=== PATIENT | male | born 1935 | race Caucasian/White ===

== ENCOUNTER 2017-04-15 10:06 | Emergency (ER) | payer MEDICARE, MEDICAID ==
[2017-04-15 10:12] VITALS: TEMP 97
[2017-04-15] MEDS ORDERED: Sodium Chloride 0.9% 1,000 ML IV STA (10:28)
--- NOTE | 2017-04-15 10:34 | ED PDOC ---
HPI: General Adult Time Seen by Provider: 04/15/17 10:14 Chief Complaint (Provider): Weakness History Per: Patient History/Exam Limitations: no limitations Onset/Duration Of Symptoms: Days (Yesterday) Additional Complaint(s): Weakness all over with pain to the neck. No numbness, tingles, back pain, chest pain. Had dyspnea yesterday, not today. No headaches, vision changes, abd pain, nausea, vomit, diarrhea. No cough, congestion, runny nose. No dysuria. No leg pain. No headache. Has dizzinesss like light-headed. Past Medical History Reviewed: Nursing Documentation, Vital Signs Vital Signs: Last Vital Signs Temp 97.0 F L 04/15/17 10:11 Pulse 75 04/15/17 11:30 Resp 18 04/15/17 11:30 BP 142/64 04/15/17 11:30 Pulse Ox 96 04/15/17 13:34 - Medical History PMH: HTN, Hypercholesterolemia, Seizures Denies: Chronic Kidney Disease Other PMH: TIA; prostate ca hx - Family History Family History: States: Unknown Family Hx - Living Arrangements Living Arrangements: With Family - Social History Current smoker - smoking cessation education provided: No Alcohol: None Drugs: Denies - Immunization History Hx Tetanus Toxoid Vaccination: No Hx Influenza Vaccination: No Hx Pneumococcal Vaccination: No - Home Medications Home Medications: Ambulatory Orders Medication Instructions Recorded Atorvastatin 03/28/14 Carvedilol 03/28/14 Hydralazine HCl 03/28/14 Montelukast 03/28/14 Symbicort 03/28/14 Travatan Z 2.5 ml 03/28/14 Vascepa 03/28/14 Clindamycin [Cleocin] 150 mg PO Q6 #0 cap 03/30/14 - Allergies Allergies/Adverse Reactions: Allergies Allergy/AdvReac Type Severity Reaction Status Date / Time No Known Allergies Allergy Verified 04/15/17 10:33 Review of Systems ROS Statement: Except As Marked, All Systems Reviewed And Found Negative Constitutional: Positive for: Weakness Cardiovascular: Positive for: Light Headedness Musculoskeletal: Positive for: Neck Pain Neurological: Positive for: Weakness, Dizziness Physical Exam - Reviewed Nursing Documentation Reviewed: Yes Vital Signs Reviewed: Yes - Physical Exam Appears: Positive for: Non-toxic, No Acute Distress Head Exam: Positive for: ATRAUMATIC, NORMAL INSPECTION, NORMOCEPHALIC Skin: Positive for: Normal Color, Warm, DRY Eye Exam: Positive for: EOMI, Normal appearance, PERRL ENT: Positive for: Normal ENT Inspection Neck: Positive for: Normal, Painless ROM, Supple Cardiovascular/Chest: Positive for: Regular Rate, Rhythm Respiratory: Positive for: CNT, Normal Breath Sounds Gastrointestinal/Abdominal: Positive for: Normal Exam, Bowel Sounds, Soft. Negative for: Tenderness Back: Positive for: Normal Inspection. Negative for: L CVA Tenderness, R CVA Tenderness Extremity: Positive for: Normal ROM. 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 Negative for: Motor/Sensory Deficits, Aphasia, Facial Droop - Laboratory Results Result Diagrams: 04/15/17 10:57 04/15/17 10:57 Interpretation Of Abnormal: 27/1.5 bun/cr - ECG ECG: Positive for: Interpreted By Me, Viewed By Me ECG Rhythm: Positive for: Right Bundle Branch Block O2 Sat by Pulse Oximetry: 96 Pulse Ox Interpretation: Normal - Radiology X-Ray: Read By Radiologist X-Ray Interpretation: No Acute Disease - CT Scan/US head and cervical Other Rad Studies (CT/US): Read By Radiologist Other Rad Interpretation: no acute - Progress ED Course And Treament: 1348: Stable. Feels much better. AAOx3. Tolerates PO. No pain. Moving neck with no issues. No dizziness. Fu with pcp and renal. Disposition - Clinical Impression Clinical Impression: Renal insufficiency, Dehydration, Weakness - Patient ED Disposition Is Patient to be Admitted: No Counseled Patient/Family Regarding: Studies Performed, Diagnosis, Need For Followup - Disposition Referrals: Gabriele Shin MD [Staff Provider] - 04/16/17 Disposition: Routine/Home Disposition Time: 13:50 Condition: STABLE Additional Instructions: Return if not better in 3 days. Instructions: Weakness (ED), Impaired Kidney Function (ED), Dehydration (ED) Print Language: KINYARWANDA
--- NOTE | 2017-04-15 10:59 | RAD ---
HISTORY: dyspnea COMPARISON: No prior. FINDINGS: LUNGS: No active pulmonary disease. PLEURA: No significant pleural effusion identified, no pneumothorax apparent. CARDIOVASCULAR: Normal. OSSEOUS STRUCTURES: No significant abnormalities. VISUALIZED UPPER ABDOMEN: Normal. OTHER FINDINGS: None. IMPRESSION: No active disease.
[2017-04-15 11:04] LABS: BASO % 0.3 % (0.0-2.0); EOS # 0.1 K/uL (0.0-0.7); EOS % 1.5 % (0.0-4.0); LYMPH # 1.3 K/uL (1.0-4.3); LYMPH % 16.2 % (20.0-40.0); MEAN CELL VOLUME 90.3 fl (80.0-94.0); MEAN CORPUSCULAR HEMOGLOBIN 30.3 pg (27.0-31.0); MEAN CORPUSCULAR HGB CONC 33.6 g/dL (33.0-37.0); MEAN PLATELET VOLUME 8.3 fl (7.2-11.7); MONO # 0.6 K/uL (0.0-0.8); MONO % 8.1 % (0.0-10.0); NEUT # 5.7 K/uL (1.8-7.0); NEUT % 73.9 % (50.0-75.0); NRBC % 0.1 % (0.0-0.0); RBC 4.6 Mil/uL (4.40-5.90); RED CELL DISTRIBUTION WIDTH 14.2 % (11.5-14.5); WHITE BLOOD COUNT 7.8 K/uL (4.8-10.8)
--- NOTE | 2017-04-15 11:23 | CT ---
PROCEDURE: CT HEAD WITHOUT CONTRAST. HISTORY: headache COMPARISON: None available. TECHNIQUE: Axial computed tomography images were obtained through the head/brain without intravenous contrast. Radiation dose: Total exam DLP = 844.55 mGy-cm. This CT exam was performed using one or more of the following dose reduction techniques: Automated exposure control, adjustment of the mA and/or kV according to patient size, and/or use of iterative reconstruction technique. FINDINGS: HEMORRHAGE: No intracranial hemorrhage. BRAIN: No mass effect or edema. No atrophy or chronic microvascular ischemic changes. VENTRICLES: Unremarkable. No hydrocephalus. CALVARIUM: Unremarkable. PARANASAL SINUSES: Chronic pansinusitis. MASTOID AIR CELLS: Unremarkable as visualized. No inflammatory changes. OTHER FINDINGS: None. IMPRESSION: No intracranial mass, hemorrhage or evidence of acute infarct. Chronic microvascular white matter ischemic change. Chronic pansinusitis.
[2017-04-15 11:24] LABS: PROTHROMBIN TIME 11.7 Seconds (9.8-13.1)
[2017-04-15 11:25] LABS: INR 1.1 (0.9-1.2); PARTIAL THROMBOPLASTIN TIME 33.8 Seconds (25.6-37.1)
--- NOTE | 2017-04-15 11:35 | CT ---
PROCEDURE: CT Cervical Spine without contrast HISTORY: <neck pain> COMPARISON: None available. TECHNIQUE: Axial computed tomography images were obtained of the cervical spine without the use of intravenous contrast. Coronal and sagittal reformatted images were created and reviewed. Radiation dose: Total exam DLP = 385.40 mGy-cm. This CT exam was performed using one or more of the following dose reduction techniques: Automated exposure control, adjustment of the mA and/or kV according to patient size, and/or use of iterative reconstruction technique. FINDINGS: VERTEBRAE: The vertebral bodies are maintained in height. Normal vertebral alignment is maintained. The atlantoaxial articulation and odontoid process are intact. There is mild dextroscoliotic curvature. DISCS/SPINAL CANAL/NEURAL FORAMINA: There is narrowing of the C5-6 through C7-T1 intervertebral disc spaces consistent with degenerative disc disease. No gross disc herniation appreciated. Evaluation of soft tissues by CT is somewhat limited. There is multilevel bilateral neural foraminal stenosis. There is no central spinal stenosis. PARASPINAL SOFT TISSUES: Unremarkable. OTHER FINDINGS: None. IMPRESSION: No evidence of fracture. Multilevel degenerative disc disease. Multilevel neural foraminal stenosis. No central spinal stenosis. Mild dextroscoliosis.
[2017-04-15 11:39] LABS: ALB/GLOB RATIO 1.3 (1.0-2.1); ALBUMIN 4.6 g/dL (3.5-5.0); ALT/SGPT 38 U/L (21-72); AST/SGOT 23 U/L (17-59); BLOOD UREA NITROGEN 27 mg/dl (9-20); CALCIUM 10.1 mg/dL (8.4-10.2); GFR AFRICAN-AMERICAN 55; GFR NON-AFRICAN AMERICAN 45
[2017-04-15 11:48] LABS: B-TYPE NATRIURETIC PEPTIDE 181 pg/ml (0-900)
[2017-04-15 13:35] VITALS: O2SAT 96
[2017-04-15 14:53] VITALS: BP 140/68; PULSE 86; RESP 19
--- NOTE | 2017-04-16 10:57 | CARD ---
APPROVED REPORT EKG Measurement Heart [id number] <Conclusion> Normal sinus rhythm Right bundle branch block Abnormal ECG
== END 2017-04-15 14:54 | disposition home or self-care (01) ==
LOC: H.ER 10:06
DX: N28.9 Disorder of kidney and ureter, unspecified (principal); E86.0 Dehydration; R53.1 Weakness; I10 Essential (primary) hypertension; Z85.46 Personal history of malignant neoplasm of prostate; Z86.73 Personal history of transient ischemic attack (TIA), and cerebral infarction without residual deficits; R56.9 Unspecified convulsions
CPT/HCPCS: 70450; 71045; 72125; 80053; 83880; 84484; 85025; 85610; 85730; 87804; 93005; 99285; J7040

== ENCOUNTER 2018-05-23 10:48 | Emergency (ER) | payer MEDICARE, MEDICAID ==
[2018-05-23 10:54] VITALS: TEMP 98.5
--- NOTE | 2018-05-23 11:38 | ED PDOC ---
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 Had similar sxs last year, was evaluated by Dr. 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 Past Medical History Reviewed: Nursing Documentation, Vital Signs Vital Signs: Last Vital Signs Temp 98.5 F 05/23/18 10:53 Pulse 73 05/23/18 10:53 Resp 19 05/23/18 10:53 BP 150/73 05/23/18 10:53 Pulse Ox 96 05/23/18 10:53 - Medical History PMH: HTN, Hypercholesterolemia, Seizures Denies: Chronic Kidney Disease - Family History Family History: States: Unknown Family Hx - Living Arrangements Living Arrangements: With Family - Social History Current smoker - smoking cessation education provided: No Alcohol: None - Immunization History Hx Tetanus Toxoid Vaccination: No Hx Influenza Vaccination: No Hx Pneumococcal Vaccination: No - Home Medications Home Medications: Ambulatory Orders Medication Instructions Recorded Atorvastatin 03/28/14 Carvedilol 03/28/14 Hydralazine HCl 03/28/14 Montelukast 03/28/14 Symbicort 03/28/14 Travatan Z 2.5 ml 03/28/14 Vascepa 03/28/14 Clindamycin [Cleocin] 150 mg PO Q6 #0 cap 03/30/14 Metaxalone [Skelaxin] 800 mg PO BID PRN #6 tablet 05/23/18 - Allergies Allergies/Adverse Reactions: Allergies Allergy/AdvReac Type Severity Reaction Status Date / Time No Known Allergies Allergy Verified 04/15/17 10:33 Review of Systems Constitutional: Negative for: Fever, Chills Eyes: Negative for: Vision Change Cardiovascular: Negative for: Chest Pain Respiratory: Negative for: Shortness of Breath Gastrointestinal: Negative for: Abdominal Pain Musculoskeletal: Positive for: Neck Pain. Negative for: Back Pain Skin: Negative for: Rash, Lesions Neurological: Positive for: Headache. Negative for: Weakness, Numbness, Incoordination, Change in Speech, Confusion, Seizures, Altered Mental Status, Dizziness Physical Exam - Reviewed Nursing Documentation Reviewed: Yes Vital Signs Reviewed: Yes - Physical Exam Appears: Positive for: Well, No Acute Distress Head Exam: Positive for: ATRAUMATIC, NORMAL INSPECTION Skin: Positive for: Normal Color, Warm, Dry Eye Exam: Positive for: Normal appearance, EOMI, PERRL Neck: Positive for: Normal, Supple, Pain On Movement Of Neck (Bilateral). 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 Negative for: Motor/Sensory Deficits, Aphasia, Facial Droop - Laboratory Results Result Diagrams: 05/23/18 12:12 05/23/18 12:12 - ECG O2 Sat by Pulse Oximetry: 96 Medical Decision Making Medical Decision Makin yo male with MAY and bilateral neck pain. - labs - CT head - CT C-spine Accession No. : [id number] Patient Name / ID : ANTWON Dodson [id number] Exam Date : 05/23/2018 11:52:51 ( Approved ) Study Comment : Sex / Age : M / 82Y Creator : Juan Armstrong MD Dictator : Juan Armstrong MD Roustabout Crew Pusher : Pin Drafting Machine Operator : Juan Armstrong MD Approver2 : Report Date : 05/23/2018 12:16:30 My Comment : Date of service: 05/23/2018 PROCEDURE: CT HEAD WITHOUT CONTRAST. HISTORY: Vertigo COMPARISON: CT head dated 04/15/2017 TECHNIQUE: Axial computed tomography images were obtained through the head/brain without intravenous contrast. Radiation dose: Total exam DLP = 1562.43 mGy-cm. This CT exam was performed using one or more of the following dose reduction techniques: Automated exposure control, adjustment of the mA and/or kV according to patient size, and/or use of iterative reconstruction technique. FINDINGS: HEMORRHAGE: No intracranial hemorrhage. BRAIN: No mass effect or edema. Atrophy. Chronic microvascular ischemic changes. VENTRICLES: Unremarkable. No hydrocephalus. CALVARIUM: Unremarkable. PARANASAL SINUSES: Mild mucosal thickening in all sinuses. MASTOID AIR CELLS: Unremarkable as visualized. No inflammatory changes. OTHER FINDINGS: None. IMPRESSION: No acute intracranial pathology. Age-related changes. No significant interval change. Mild pansinusitis. Accession No. : [id number] Patient Name / ID : ANTWON Dodson [id number] Exam Date : 05/23/2018 11:56:37 ( Approved ) Study Comment : Sex / Age : M / 82Y Creator : Juan Armstrong MD Dictator : Juan Armstrong MD Roustabout Crew Pusher : Pin Drafting Machine Operator : Juan Armstrong MD Approver2 : Report Date : 05/23/2018 12:18:20 My Comment : Date of service: 05/23/2018 PROCEDURE: CT Cervical Spine without contrast HISTORY: Bilateral neck pain COMPARISON: CT cervical spine dated 04/15/2017 TECHNIQUE: Axial computed tomography images were obtained of the cervical spine without the use of intravenous contrast. Coronal and sagittal reformatted images were creat ed and reviewed. Radiation dose: Total exam DLP = 330.65 mGy-cm. This CT exam was performed using one or more of the following dose reduction techniques: Automated exposure control, adjustment of the mA and/or kV according to patient size, and/or use of iterative reconstruction technique. FINDINGS: VERTEBRAE: No fracture. Reversal of the cervical lordosis centered at C5-6. No destructive bony lesion. DISCS/SPINAL CANAL/NEURAL FORAMINA: Multilevel disc space narrowing with anterior osteophytic changes. PARASPINAL SOFT TISSUES: Unremarkable. OTHER FINDINGS: None. IMPRESSION: No acute fracture. Multilevel degenerative changes.. Disposition - Clinical Impression Clinical Impression: Headache, Bilateral neck pain - Disposition Referrals: [facility] [Outside] Gabriele Shin MD [Family Provider] - Jaxon Gold MD [Medical Doctor] - Disposition: Routine/Home Disposition Time: 14:35 Condition: STABLE Prescriptions: Metaxalone [Skelaxin] 800 mg PO BID PRN #6 tablet PRN Reason: Muscle Spasm Instructions: Headache, Adult, Generalized Neck Pain Forms: [employer] (Libyan) Print Language: [id number]
--- NOTE | 2018-05-23 12:20 | CT ---
Date of service: 05/23/2018 PROCEDURE: CT HEAD WITHOUT CONTRAST. HISTORY: Vertigo COMPARISON: CT head dated 04/15/2017 TECHNIQUE: Axial computed tomography images were obtained through the head/brain without intravenous contrast. Radiation dose: Total exam DLP = 1562.43 mGy-cm. This CT exam was performed using one or more of the following dose reduction techniques: Automated exposure control, adjustment of the mA and/or kV according to patient size, and/or use of iterative reconstruction technique. FINDINGS: HEMORRHAGE: No intracranial hemorrhage. BRAIN: No mass effect or edema. Atrophy. Chronic microvascular ischemic changes. VENTRICLES: Unremarkable. No hydrocephalus. CALVARIUM: Unremarkable. PARANASAL SINUSES: Mild mucosal thickening in all sinuses. MASTOID AIR CELLS: Unremarkable as visualized. No inflammatory changes. OTHER FINDINGS: None. IMPRESSION: No acute intracranial pathology. Age-related changes. No significant interval change. Mild pansinusitis.
--- NOTE | 2018-05-23 12:21 | CT ---
Date of service: 05/23/2018 PROCEDURE: CT Cervical Spine without contrast HISTORY: Bilateral neck pain COMPARISON: CT cervical spine dated 04/15/2017 TECHNIQUE: Axial computed tomography images were obtained of the cervical spine without the use of intravenous contrast. Coronal and sagittal reformatted images were created and reviewed. Radiation dose: Total exam DLP = 330.65 mGy-cm. This CT exam was performed using one or more of the following dose reduction techniques: Automated exposure control, adjustment of the mA and/or kV according to patient size, and/or use of iterative reconstruction technique. FINDINGS: VERTEBRAE: No fracture. Reversal of the cervical lordosis centered at C5-6. No destructive bony lesion. DISCS/SPINAL CANAL/NEURAL FORAMINA: Multilevel disc space narrowing with anterior osteophytic changes. PARASPINAL SOFT TISSUES: Unremarkable. OTHER FINDINGS: None. IMPRESSION: No acute fracture. Multilevel degenerative changes..
[2018-05-23 12:22] LABS: BASO % 0.8 % (0.0-2.0); EOS # 0.3 K/uL (0.0-0.7); EOS % 6.5 % (0.0-4.0); HEMOGLOBIN 12.4 g/dL (12.0-18.0); LYMPH # 1.1 K/uL (1.0-4.3); LYMPH % 21.1 % (20.0-40.0); MEAN CORPUSCULAR HEMOGLOBIN 30.2 pg (27.0-31.0); MEAN CORPUSCULAR HGB CONC 32.8 g/dL (33.0-37.0); MONO # 0.4 K/uL (0.0-0.8); MONO % 8.6 % (0.0-10.0); NEUT # 3.2 K/uL (1.8-7.0); NRBC % 0.1 % (0.0-0.0); RBC 4.12 Mil/uL (4.40-5.90); RED CELL DISTRIBUTION WIDTH 14.7 % (11.5-14.5); WHITE BLOOD COUNT 5.1 K/uL (4.8-10.8)
[2018-05-23 12:30] LABS: ALB/GLOB RATIO 1.3 (1.0-2.1); ALBUMIN 4.1 g/dL (3.5-5.0); AST/SGOT 23 U/L (17-59); BLOOD UREA NITROGEN 17 mg/dl (9-20); CALCIUM 9.3 mg/dL (8.4-10.2); GFR NON-AFRICAN AMERICAN > 60
[2018-05-23 12:32] LABS: ALT/SGPT < 6 U/L (21-72)
[2018-05-23 15:08] VITALS: BP 142/72; PULSE 62; RESP 18
[2018-05-25 15:21] VITALS: O2SAT 96
== END 2018-05-23 15:06 | disposition home or self-care (01) ==
LOC: H.ER 10:48
DX: R51 Headache (principal); M54.2 Cervicalgia; E78.00 Pure hypercholesterolemia, unspecified; I10 Essential (primary) hypertension; J32.4 Chronic pansinusitis; Z86.73 Personal history of transient ischemic attack (TIA), and cerebral infarction without residual deficits